=== PATIENT | female | born 1970 | race Caucasian/White ===

== ENCOUNTER 2017-01-31 13:14 | Emergency (ER) | payer SELFPAY ==
[~2017-01-31] VITALS: Ht 162.6 cm; Wt 68.0 kg
[2017-01-31 14:15] VITALS: BP 114/71
[2017-01-31] MEDS ORDERED: KETOROLAC TROMETH 60MG/2ML VIAL IM ONE (14:30)
== END 2017-01-31 15:27 | disposition home or self-care (01) ==
LOC: ER 13:14
DX: M23.92 Unspecified internal derangement of left knee (principal); F17.210 Nicotine dependence, cigarettes, uncomplicated
CPT/HCPCS: 73562; 96372; 99284; J1885

== ENCOUNTER 2017-04-03 08:06 | Emergency (ER) | payer SELFPAY ==
[~2017-04-03] VITALS: Ht 162.6 cm; Wt 63.5 kg
[2017-04-03 08:23] VITALS: BP 156/94
== END 2017-04-03 09:23 | disposition home or self-care (01) ==
LOC: ER 08:06
DX: J02.9 Acute pharyngitis, unspecified (principal); F17.210 Nicotine dependence, cigarettes, uncomplicated

== ENCOUNTER 2017-04-21 05:24 | Emergency (ER) | payer SELFPAY ==
[~2017-04-21] VITALS: Ht 162.6 cm; Wt 69.4 kg
[2017-04-21] MEDS ORDERED: SODIUM CHLORIDE 0.9% 1,000 ML IV ONE (05:54)
[2017-04-21 05:57] VITALS: BP 149/95
[2017-04-21] MEDS ORDERED: cefTRIAXone SODIUM 250 MG VL IM ONE (06:00)
[2017-04-21] MEDS ORDERED: AZITHROMYCIN 250 MG TAB PO ONE (06:00)
== END 2017-04-21 07:38 | disposition left against medical advice (07) ==
LOC: ER 05:25
DX: A64 Unspecified sexually transmitted disease (principal); F17.210 Nicotine dependence, cigarettes, uncomplicated